=== PATIENT | female | born 1995 | race Caucasian/White ===

== ENCOUNTER 2025-01-05 17:17 | Outpatient (CLI) | payer BC, SELFPAY ==
--- OUTSIDE RECORDS SUMMARY | 2025-01-05 17:20 | XMS_ITS | Clinical Summary ---
Author Organization [facility] Address [address] [place] [id number] Care Team Providers Care Bed And Breakfast Operator Name Role Phone Unavailable Primary Care Provider Unavailabl e Social History Tobacco Use Types Packs/Day Years Used Date Smoking Tobacco: Never Assessed Comments Unknown Sex and Gender Information Value Date Recorded Sex Assigned at Not on file Legal Sex Female 3:18 PM CDT Gender Identity Not on file Sexual Orientation Not on file Plan of Treatment Upcoming Encounters Date Type Department Care Team (Late st Contact Info) Description 01/27/2025 11:10 AM CDT Office Visit [facility] Family Medicine - [place] [address] [facility] [address] [phone] Daya Robb MD [address] [place] [address] [phone] Health Maintenance Due Date Last Done Comments Cervical Cancer Screening Pa p Smear (Age 21 to 29) Every 3 Years 1997 Cervical Cancer Screening 1997 Annual Physical 2000 Hepatitis C 09/01/2015 DTaP, Tdap and Td Vaccines ( 1 - Tdap) 2016 Hepatitis B Vaccines (1 of - 19+ 3-dose series) 2016 COVID-19 Vaccine (2023-2 5 season) 2024 HPV Vaccines Aged Out No longer eligi ble based on patient's age to complete this topic Meningococcal B Vaccine Aged Out No l onger eligible based on patient's age to complete this topic Meningococcal Vaccine Aged Out No lola onur eligible based on patient's age to complete this topic Pneumococcal Vaccine: Pediat rics (0 to 5 Years) and At-Risk Patients (6 to 49 Years) Aged Out No longer eligible b ased on patient's age to complete this topic RSV Immunizations Under 20 Months Aged Out No longer eligible based on patient's age to complete this topic Insurance [facility] [id number] [facility]
[2025-01-05 18:24] LABS: Beta HCG Quantitative < 2.39 mIU/ML
== END 2025-01-05 17:18 | disposition home or self-care (01) ==
LOC: ANHLAB 17:18
PROVIDERS: Visit Provider Student in an Organized Health Care Education/Training Program
DX: N91.2 Amenorrhea, unspecified (principal)
CPT/HCPCS: 36415; 84702

== ENCOUNTER 2025-06-20 11:05 | Emergency (ER) | payer BC, SELFPAY ==
[2025-06-20 11:29] VITALS: BP 118/71; PULSE 80; RESP 18; TEMP 36.6; O2SAT 98
--- NOTE | 2025-06-20 11:29 | ED_ITS ---
HPI - URI/Sore Throat General Chief Complaint: Upper Respiratory Infection Stated Complaint: strep Source: patient Mode of arrival: ambulatory Limitations: no limitations History of Present Illness HPI Narrative: this is a 29 y/o female that presents with dry cough, scratchy throat, and rhinorrhea for one day. patient denies fever, chills, body aches, denies difficulty swallowing, nausea, vomiting, or diarrhea. patient states her children had similar symptoms for one week and have now started to resolve. she is wanting tested for COVID and flu before attending [facility] [place]. MD elicited complaint: cough, sore throat and rhinorrhea Onset (ago): day(s) (1) Consistency: constant Severity: mild Description of mucous: clear Able to tolerate fluids by mouth: Yes Exacerbating factors: nothing Relieving factors: nothing Context: sick contacts Associated symptoms: denies other symptoms Treatments prior to arrival: cold medicine Related Data Home Medications ?Medication ?Instructions ?Recorded ?Confirmed ?Last Taken ?Type metoprolol succinate 50 mg 50 mg PO DAILY 01/05/2503/24 Unknown History tablet,extended release 24 hr valacyclovir 1 gram tablet 1,000 mg PO DAILY 01/05/25 01/05/25 Unknown History (Valtrex) Allergies Allergy/AdvReac Type Severity Reaction Status Date / Time No Known Allergies Allergy Verified 06/20/25 11:41 Review of Systems Review of Systems: All systems reviewed & are unremarkable except as noted in HPI and below PMFSH Past Medical History Medical History Allergies Surgical History Surgical History H/O unilateral salpingectomy H/O foot surgery Family History Family History Mother Depression Diabetes mellitus Social History Social History Smoking status: Former smoker Alcohol intake: former Substance use: never Substance use type: does not use Lack of Transportation: No Lack of Food: Never True Current Housing: I Have Housing Concerned About Future Housing: No Difficulty Paying Gas/Electric Bills: No Difficulty Paying for Meds: No Currently Unemployed: No Education: High School Diploma/GED Difficulty w/ Childcare or Family Care: No Living arrangements: with family Occupation/Education: unemployed Gender identity (if verbalized by the patient): Female Exam Const: General: healthy appearing Nutritional Appearance: well nourished Orientation/consciousness: patient oriented x3 Limitations: no limitations HENMT: Head: normal to inspection Ears: external ears normal Face/Nose/Sinus: Normal external nose present Face and sinus: normal facial exam Mouth: Yes Normal oral and palatal mucosa present Teeth and gingiva: dentition normal Throat: posterior oropharynx normal Eyes: Conjunctivae: conjunctivae normal Pupils: Equal, round and reactive pupils present EOM: EOMs intact bilaterally Direct Ophthalmoscopy: no photophobia Neck: Neck: normal visual inspection and no lymphadenopathy Chest: Chest palpation & inspection: normal inspection of the chest Resp: Effort & Inspection: normal respiratory effort Auscultation: clear to auscultation bilaterally Cardio: Rate: regular rate Rhythm: regular rhythm GI: GI Palp: Yes Soft to palpation Auscultation: normal bowel sounds Back/Spine/Pelvis: Back: no CVA tenderness Skin: General skin exam: normal color Rashes: no rashes Wounds: no wounds Neuro: General: patient oriented x3 Cranial nerves: Yes Nystagmus not present Speech: normal speech Gait exam (Neuro): Normal gait present Extrem: General: normal to inspection and no clubbing, cyanosis or edema Psych: Mental Status: mental status grossly normal Affect: normal affect Attitude: cooperative Course Course Emergency Course: this is a 29 y/o female that presents with dry cough, scratchy throat, and rhinorrhea for one day. patient denies fever, chills, body aches, denies difficulty swallowing, nausea, vomiting, or diarrhea. patient states her children had similar symptoms for one week and have now started to resolve. she is wanting tested for COVID and flu before attending [facility] [place]. vitals stable, no distress on exam exam normal. COVID negative, Influenza A&B negative, strep negative. discussed causes of viral symptoms and treatment, educated to Increase fluids, rest, Continue with symptomatic management, cough and cold medication as package instructions, Tylenol Motrin as needed for pain and fever - Vicks Vaporub for cough suppression, A virus is contagious avoid out beings, gatherings, immunocompromised people, follow-up with your storage manager in next 1-2 days for further evaluation exam, Return immediately to the emergency department any worrisome sign or symptom. answered all questions to her satisfaction. patient denies any further needs or concerns to be addressed prior to discharge Level of Care: Express Care Visit Vital Signs Vital signs: Vital Signs Temperature 97.9 F 06/20/25 11:29 Pulse Rate 80 06/20/25 11:29 Respiratory Rate 18 06/20/25 11:29 Blood Pressure 118/71 06/20/25 11:29 Pulse Oximetry 98 06/20/25 11:29 Oxygen Delivery Room Air 06/20/25 11:29 Temperature 97.9 F 06/20/25 11:29 Pulse Rate 80 06/20/25 11:29 Respiratory Rate 18 06/20/25 11:29 Blood Pressure 118/71 06/20/25 11:29 Pulse Oximetry 98 06/20/25 11:29 Oxygen Delivery Room Air 06/20/25 11:29 MDM MDM Narrative Medical decision making narrative: this is a 29 y/o female that presents with dry cough, scratchy throat, and rhinorrhea for one day. patient denies fever, chills, body aches, denies difficulty swallowing, nausea, vomiting, or diarrhea. patient states her children had similar symptoms for one week and have now started to resolve. she is wanting tested for COVID and flu before attending [facility]. vitals stable, no distress on exam exam normal. COVID negative, Influenza A&B negative, strep negative. discussed causes of viral symptoms and treatment, educated to Increase fluids, rest, Continue with symptomatic management, cough and cold medication as package instructions, Tylenol Motrin as needed for pain and fever - Vicks Vaporub for cough suppression, A virus is contagious avoid out beings, gatherings, immunocompromised people, follow-up with your storage manager in next 1-2 days for further evaluation exam, Return immediately to the emergency department any worrisome sign or symptom. answered all questions to her satisfaction. patient denies any further needs or concerns to be addressed prior to discharge Differential Diagnosis Differential Diagnosis: viral syndrome, Influenza, COVID, strep pharyngitis. Lab Data [facility] Lab Attestation statement: I personally reviewed the patient's lab results. Lab results narrative: COVID negative, Influenza A&B negative, strep negative. Labs: Lab Results 06/20/25 06/20/25 Range/Units 11:35 12:13 POC Influenza A Ag Negative (Negative) POC Influenza B Ag Negative (Negative) POC SARS CoV-2 Ag Negative (Negative) POC Grp A Strep Screen Negative (Negative) Discharge Plan Discharge Clinical Impression: Upper respiratory infection, viral Patient Disposition: Home Condition: Stable Instructions: Viral Syndrome (ED), Safe Use of Cough and Cold Medicines (ED) Additional Instructions: Increase fluids, rest, Continue with symptomatic management, - cough and cold medication as package instructions - Tylenol Motrin as needed for pain and fever - Vicks Vaporub for cough suppression, A virus is contagious avoid out beings, gatherings, immunocompromised people, follow-up with your storage manager in next 1-2 days for further evaluation exam Return immediately to the emergency department any worrisome sign or symptom. Patient Language: Russian Prescriptions: No Action valacyclovir [Valtrex] 1 gram tablet 1,000 mg PO DAILY metoprolol succinate 50 mg tablet extended release 24 hr 50 mg PO DAILY sertraline 50 mg tablet 50 mg PO DAILY Qty: 60 0RF spironolactone 50 mg tablet 50 mg PO DAILY Qty: 90 3RF metformin 500 mg tablet 500 mg PO BID Qty: 60 6RF Follow-up/Referrals: PHYSICIAN NOT ON STAFF,NONSTAFF [Primary Care Provider] Time of Disposition: 12:20
[2025-06-20 11:37] LABS: EDSTREPNEGPOS1 Negative (Negative)
[2025-06-20 12:16] LABS: EDCOVIDSCREEN Negative (Negative); EDINFLUASCREEN Negative (Negative); EDINFLUBSCREEN Negative (Negative)
--- OUTSIDE RECORDS SUMMARY | 2025-06-20 12:59 | XMS_ITS | Encounter Summary ---
Author Organization [facility] Address [address] [place] [address] Care Team Providers Care Inspector Aligning Name Role Phone Daya Robb MD Primary Care Provider + Encounter Details Date Type Department Care Team (Late Contact Info) Description 06/17/2025 Results Follow-Up [address] [address] Daya Robb MD [address] [place] [address] TSH W/REFLEX, THYROXINE, FREE (FT4) Social History Tobacco Use Types Packs/Day Years Used Date Smoking Tobacco: Never Passive Smoke Exposure: Past Smokeless Tobacco: Never Alcohol Use Standard Drinks/Week Comments Not Currently 0 (1 standard drink = 0.6 oz pur e alcohol) PHQ-2 Answer Date Recorded Patient Health Questionnaire-2 Score 0 01/27/2025 Comments Unknown Sex and Gender Information Value Date Recorded Sex Assigned at Not on file Legal Sex Female 3:18 PM CDT Gender Identity Not on file Sexual Orientation Not on file documented as of this encounter Plan of Treatment Upcoming Encounters Date Type Department Care Team (Late Contact Info) Description 01/30/2026 10:30 AM CDT Office Visit [address] [address] Daya Robb MD [address] [facility] [address] [place] [phone] Scheduled Orders Name Type Priority Associated Diagnoses Orde r Schedule TSH W/REFLEX Lab Routine Acquired hypothyroidism Expected: 09/15/2025 (Approximate), Expires: 06/17/2026 documented as of this encounter Visit Diagnoses Diagnosis Acquired hypothyroidism Unspecified hypothyroidism documented in this encounter Care Teams Inspector Aligning Relationship Specialty Start Date End Date Daya Robb MD [address] [facility] [address] [place] [address] PCP - General FAMILY PRACTICE 01/27/25 documented as of this encounter
--- OUTSIDE RECORDS SUMMARY | 2025-06-20 12:59 | XMS_ITS | Clinical Summary ---
Author Organization [facility] Address [facility] [place] [address] Care Team Providers Care Jewelry Inspector Name Role Phone Daya Robb MD Primary Care Provider + Allergies No known active allergies Medications metFORMIN (GLUCOPHAGE) 500 MG tablet Take 1 tablet (500 mg total) by mouth 2 (two) times daily. 5 Active docusate sodium (COLACE) 100 MG capsule Take 1 capsule (100 mg total) by mouth 2 (two) times daily. Active metoprolol succinate ER (TOPROL-XL) 50 MG 24 hr tabletIndications: PVC (premature ventricular contraction) Take 1 tablet (50 mg total) by mouth daily. 90 tablet 2 5 05/10/20 26 Active tirzepatide (ZEPBOUND) 2.5 MG/0.5ML injectionIndicatio ns:Weight Loss Inject 2.5 mg into the skin once a week. Indications : Weight Loss 2 mL 5 Active sertraline (ZOLOFT) 100 MG tabletIndications: Anxiety Take 1 tablet (100 mg total) by mouth daily. 90 tablet 1 5 12/06/19 26 Active levothyroxine (SYNTHROID) 50 MCG tabletIndications: Acquired hypothyroidism Take 1 tablet (50 mcg total) by mouth every morning. 90 tablet 5 06/17/20 26 Active sertraline (ZOLOFT) 100 MG tabletIndications: Anxiety Take 1 tablet (100 mg total) by mouth daily. 90 tablet 1 5 06/08/20 25 Discontin ued(Reord er) levothyroxine (SYNTHROID) 25 MCG tabletIndications: Acquired hypothyroidism Take 1 tablet (25 mcg total) by mouth every morning. 90 tablet 2 06/17/20 25 Discontin ued(Reord er) Active Problems Problem Noted Date Diagnosed Date Acquired hypothyroidism 01/28/2025 Overview (05/05/2025): New dx 01/2025. Now on levothyroxine 25 mcg daily and TSH is normalized. Assessment & Plan (05/05/2025 11:48 AM MANAGER ENVIRONMENTAL): Repeat TSH March shows normal TSH. Continue levothyroxine. Anxiety 01/27/2025 Overview (01/27/2025): Has been taking sertraline about a year ago. Started on 25 mg and has been increased to 100 mg. [facility] last week. Has mood swings. Last week sertraline was increased from 50 mg to 100 mg. Notes irritability. Also tried venlafaxine but was switched back again more recently. Venlafaxine caused side effects- missed doses caused brain zaps. Big fluctuations in sleep. Mom is panic bipolar. Assessment & Plan (01/27/2025 12:27 PM CDT): Not controlled but was adjusted recently. We discussed Vraylar as an option however would prefer to avoid while she anticipates . She will continue with sertraline for now. Female hirsutism 01/27/2025 PVC (premature ventricular contraction) 01/28/20 Overview (05/05/2025): Recurrent. Taking metoprolol. Recently started her spironolactone for PCOS and notes episodes of dizziness. Assessment & Plan (05/05/2025 11:47 AM MANAGER ENVIRONMENTAL): Continue metoprolol for her PVCs but discontinue spironolactone as it is likely causing some hypotension. Assessment & Plan (01/27/2025 12:23 PM CDT): Chronic. Controlled with metoprolol. PCOS (polycystic ovarian syndrome) 01/27/2025 Overview (01/27/2025): Started on metformin in 07/2024. Saw OB for management- [facility]. Herpes genitalis in women 01/27/2025 Overview (01/27/2025): Takes valtrex with flares. Morbid obesity 01/27/2025 Overview (05/05/2025): Took phentermine. 10 lb weight loss. Now stagnant. Notes constipation which is also chronic. Father has pancreatitis but is also alcoholic. No family history of thyroid cancer. Assessment & Plan (05/05/2025 11:46 AM MANAGER ENVIRONMENTAL): Discontinue phentermine. She has reached maximum benefit at this point from it. Encouraged dietary changes, specifically increasing high-fiber foods slowly so she can adjust to this. Assessment & Plan (01/27/2025 12:29 PM CDT): Insurance appears to cover Zepbound. Will attempt prior authorization. Discussed undrained occasions, risks and benefits of the medication. If insurance does not cover this, we will make arrangements for phentermine. 1 month follow-up if on Zepbound, 3-month follow-up if on phentermine. Encounters Date Type Department Care Team Description 06/17/2025 Results Follow-Up [address] [address] Daya Robb MD TSH W/REFLEX, THYROXINE, FREE (FT4) 06/16/2025 2:40 PM MANAGER ENVIRONMENTAL Allied Health/Nurse Visit [address] [place] [phone] Daya Robb MD Lab Draw 06/16/2025 Travel 06/15/[address] [place] [address] Daya Robb MD Medication Problem 06/08/2025 Orders Only [address] [place] [address] Asya Austin MA 06/03/2025 MyChart Message Enc [address] [place] [address] Daya Robb MD Zepbound 05/10/2025 Orders Only [address] [place] [address] Talia Vergara MA 05/05/2025 11:10 AM MANAGER ENVIRONMENTAL Office Visit [address] [place] [address] Daya Robb MD Follow Up (Follow up on weight/meds. ) 05/05/2025 Travel 03/21/2025 Results Follow-Up [address] [place] [address] Daya Robb MD TSH W/REFLEX from Last 3 Months Family History Medical History Relation Comments No Known Problems Brother Alcohol Abuse Father Pancreatitis Father No Known Problems Half-sister Blood Disease Mother ITP Melanoma Mother Mental Health Mother bipolar No Known Problems Son 1 No Known Problems Son 2 Relation Status Comments Brother Alive Father Alive Half-sister Alive Mother Alive Son 1 Alive Son 2 Alive Social History Tobacco Use Types Packs/Day Years Used Date Smoking Tobacco: Never Passive Smoke Exposure: Past Smokeless Tobacco: Never Tobacco Cessation:Counseling Given: No Alcohol Use Standard Drinks/Week Comments Not Currently 0 (1 standard drink = 0.6 oz pur e alcohol) PHQ-2 Answer Date Recorded Patient Health Questionnaire-2 Score 0 01/27/2025 Comments Unknown Sex and Gender Information Value Date Recorded Sex Assigned at Not on file Legal Sex Female 3:18 PM CDT Gender Identity Not on file Sexual Orientation Not on file Last Filed Vital Signs Vital Sign Reading Time Taken Comments Blood Pressure 106/73 05/05/2025 11:14 AM MANAGER ENVIRONMENTAL Pulse 86 05/05/2025 11:14 AM MANAGER ENVIRONMENTAL Temperature 36.2 C (97.2 F) 05/05/2025 11:14 AM MANAGER ENVIRONMENTAL Respiratory Rate - - Oxygen Saturation 97% 05/05/2025 11:14 AM MANAGER ENVIRONMENTAL Inhaled Oxygen Concentration - - Weight 114 kg (251 lb 6.4 oz) 05/05/2025 11:14 A M MANAGER ENVIRONMENTAL Height 170.2 cm (5' 7) 05/05/2025 11:14 AM MANAGER ENVIRONMENTAL Body Mass Index 39.37 05/05/2025 11:14 AM MANAGER ENVIRONMENTAL Plan of Treatment Upcoming Encounters Date Type Department Care Team (Late st Contact Info) Description 01/30/2026 10:30 AM CDT Office Visit [facility] Family Medicine - [place] [address] [facility] [address] [place] [address] [phone] Daya Robb MD [address] [place], [place] [phone] Health Maintenance Due Date Last Done Comments Cervical Cancer Screening Pa p Smear (Age 21 to 29) Every 3 Years 1997 Cervical Cancer Screening 1997 Hepatitis C 09/01/2015 DTaP, Tdap and Td Vaccines ( 1 - Tdap) 2016 Hepatitis B Vaccines (1 of 3 - 19+ 3-dose series) 2016 HPV Vaccines (1 - 3-dose SCD M series) 2024 COVID-19 Vaccine (1 - 2024-2 6 season) 2025 Influenza Adult (#1) 2025 Annual Physical 01/27/2026 01/27/2025 PHQ-2 (Physician Dumas) Completed 01/27/2025 Hepatitis A Vaccines Aged Out No long er eligible based on patient's age to complete this topic Meningococcal B Vaccine Aged Out No l onger eligible based on patient's age to complete this topic Meningococcal Vaccine Aged Out No lola onur eligible based on patient's age to complete this topic Pneumococcal Vaccine: Pediat rics (0 to 5 Years) and At-Risk Patients (6 to 49 Years) Aged Out No longer eligi ble based on patient's age to complete this topic RSV Immunizations Under 20 Months Aged Out No longer eligible based on patient's age to complete this topic Procedures Procedure Name Priority Date/Time Associated Diagnosis Comments COLLECTION VENOUS BLOOD VENIPUNCTURE Routine 06/16/2025 2:48 PM MANAGER ENVIRONMENTAL Acquired hypothyroidism THYROXINE, FREE (FT4) Routine 06/16/2025 2:47 PM MANAGER ENVIRONMENTAL TSH W/REFLEX Routine 06/16/2025 2:47 PM MANAGER ENVIRONMENTAL Acquired hypothyroidism from Last 3 Months Results * THYROXINE, FREE (FT4) (06/16/2025 2:47 PM MANAGER ENVIRONMENTAL) FREE T4 0.87 0.76 - 1.46 NG/DL 06/17/2025 11:59 AM MANAGER ENVIRONMENTAL [facility] 06/16/2025 2:47 PM MANAGER ENVIRONMENTAL Daya Robb MD LABORATORY Final Re sult Performing Organization Address [facility]/ZIP Co de Phone Number [place] [address] [place] [address], [place] [phone] * (ABNORMAL) TSH W/REFLEX (06/16/2025 2:47 PM MANAGER ENVIRONMENTAL) TSH 5.481(H) 0.358 - 3.740 uIU/ML 06/17/2025 10:16 AM MANAGER ENVIRONMENTAL [facility] BLOOD VENOUS BLOOD SPECIMEN / Unknown 06/16/2025 2:47 PM MANAGER ENVIRONMENTAL Daya Robb MD LABORATORY Final Re sult [place] [id number] [place] [address], [place] [phone] from Last 3 Months Insurance [facility] Care Teams Jewelry Inspector Relationship Specialty Start Date End Date Daya Robb MD [address] [place] [phone] PCP - General FAMILY PRACTICE 01/27/25
== END 2025-06-20 12:22 | disposition home or self-care (01) ==
PROVIDERS: Emergency Provider Nurse Practitioner Family
DX: J06.9 Acute upper respiratory infection, unspecified (principal); Z20.822 Contact with and (suspected) exposure to COVID-19; Z87.891 Personal history of nicotine dependence
CPT/HCPCS: 87081; 87426; 87804; 87880; 99213; G0463